=== PATIENT | male | born 1990 | race Caucasian/White ===

== ENCOUNTER 2018-03-31 15:38 | Emergency (ER) | payer OTHER ==
[~2018-03-31] VITALS: Ht 170.2 cm; Wt 69.8 kg
[2018-03-31] MEDS ORDERED: ALBU4 (15:46)
== END 2018-03-31 17:00 | disposition home or self-care (01) ==
LOC: ER 15:38
DX: S60.211A Contusion of right wrist, initial encounter (principal); W22.8XXA Striking against or struck by other objects, initial encounter; Z79.899 Other long term (current) drug therapy
CPT/HCPCS: 29125; 73110; 99282